=== PATIENT | male | born 1985 | race American Indian/Alaskan Native ===

== ENCOUNTER 2020-11-19 18:23 | Emergency (ER) | payer MEDICAID ==
[~2020-11-19 18:23] MED LIST: EPINEPHrine 1 MG/10 ML SYRINGE ONE
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
== END 2020-11-19 23:30 ==
LOC: ED 18:23
DX: T14.8XXA Other injury of unspecified body region, initial encounter (principal); I46.8 Cardiac arrest due to other underlying condition; W34.00XA Accidental discharge from unspecified firearms or gun, initial encounter; Y93.89 Activity, other specified; Y92.410 Unspecified street and highway as the place of occurrence of the external cause; Y99.8 Other external cause status
CPT/HCPCS: 92950; 99285; J0171